=== PATIENT | female | born 1990 | race Caucasian/White ===

== ENCOUNTER 2018-03-08 23:32 | Emergency (ER) | payer SELFPAY ==
[2018-03-08 23:42] VITALS: BP 111/72
[2018-03-09] MEDS ORDERED: KEFLEX PO ONE (00:40)
[2018-03-09] MEDS ORDERED: TYLENOL PO ONE (00:41)
--- NOTE | 2018-03-09 00:46 | Emergency Department Report ---
ED ENT HPI - General Chief complaint: Sore Throat Stated complaint: FEVER,SORE THROAT,SINUS INFECTION Time Seen by Provider: 03/09/18 00:01 Source: patient Mode of arrival: Ambulatory Limitations: No Limitations - Related Data Previous Rx's Medication Instructions Recorded Last Taken Type Cephalexin [Keflex] 500 mg PO Q12HR #14 cap 03/09/18 Unknown Rx Fluticasone [Flonase] 1 spray NS QDAY PRN #1 bottle 03/09/18 Unknown Rx Ibuprofen [Motrin] 600 mg PO Q8H PRN #15 tablet 03/09/18 Unknown Rx Allergies Allergy/AdvReac Type Severity Reaction Status Date / Time albuterol Allergy Hives Verified 03/08/18 23:42 azithromycin Allergy Hives Verified 03/08/18 23:42 [From Zithromax Z-Chalo] ED Dental HPI - General Chief complaint: Sore Throat Stated complaint: FEVER,SORE THROAT,SINUS INFECTION Time Seen by Provider: 03/09/18 00:01 Source: patient Mode of arrival: Ambulatory Limitations: No Limitations - Related Data Previous Rx's Medication Instructions Recorded Last Taken Type Cephalexin [Keflex] 500 mg PO Q12HR #14 cap 03/09/18 Unknown Rx Fluticasone [Flonase] 1 spray NS QDAY PRN #1 bottle 03/09/18 Unknown Rx Ibuprofen [Motrin] 600 mg PO Q8H PRN #15 tablet 03/09/18 Unknown Rx Allergies Allergy/AdvReac Type Severity Reaction Status Date / Time albuterol Allergy Hives Verified 03/08/18 23:42 azithromycin Allergy Hives Verified 03/08/18 23:42 [From Zithromax Z-Chalo] ED Review of Systems ROS: Stated complaint: FEVER,SORE THROAT,SINUS INFECTION Other details as noted in HPI Constitutional: denies: chills, fever Eyes: denies: eye pain, eye discharge, vision change ENT: denies: ear pain, throat pain Respiratory: denies: cough, shortness of breath, wheezing Cardiovascular: denies: chest pain, palpitations Endocrine: no symptoms reported Gastrointestinal: denies: abdominal pain, nausea, diarrhea Genitourinary: denies: urgency, dysuria, discharge Musculoskeletal: denies: back pain, joint swelling, arthralgia Skin: denies: rash, lesions Neurological: denies: headache, weakness, paresthesias Psychiatric: denies: anxiety, depression Hematological/Lymphatic: denies: easy bleeding, easy bruising ED Past Medical Hx - Past Medical History Previous Medical History?: Yes Hx Diabetes: Yes (type 1) Additional medical history: Lupus. 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 - Surgical History Past Surgical History?: Yes Additional Surgical History: tonsils - Social History Smoking Status: Never Smoker Substance Use Type: None - Medications Home Medications: Home Medications Medication Instructions Recorded Confirmed Last Taken Type Cephalexin [Keflex] 500 mg PO Q12HR #14 cap 03/09/18 Unknown Rx Fluticasone [Flonase] 1 spray NS QDAY PRN #1 bottle 03/09/18 Unknown Rx Ibuprofen [Motrin] 600 mg PO Q8H PRN #15 tablet 03/09/18 Unknown Rx ED Physical Exam - General Limitations: No Limitations General appearance: alert, in no apparent distress - Head Head exam: Present: atraumatic, normocephalic - Eye Eye exam: Present: normal appearance - ENT ENT exam: Present: mucous membranes moist - Neck Neck exam: Present: normal inspection - Respiratory Respiratory exam: Present: normal lung sounds bilaterally. Absent: respiratory distress - Cardiovascular Cardiovascular Exam: Present: regular rate, normal rhythm. Absent: systolic murmur, diastolic murmur, rubs, gallop - GI/Abdominal GI/Abdominal exam: Present: soft, normal bowel sounds - Extremities Exam Extremities exam: Present: normal inspection - Back Exam Back exam: Present: normal inspection - Neurological Exam Neurological exam: Present: alert, oriented X3 - Psychiatric Psychiatric exam: Present: normal affect, normal mood - Skin Skin exam: Present: warm, dry, intact, normal color. Absent: rash ED Course Vital Signs 03/08/18 23:38 Temperature 99.0 F Pulse Rate 109 H Respiratory 16 Rate Blood Pressure 111/72 O2 Sat by Pulse 98 Oximetry Critical care attestation.: If time is entered above; I have spent that time in minutes in the direct care of this critically ill patient, excluding procedure time. ED Disposition Clinical Impression: Sinusitis Qualifiers: Sinusitis location: frontal Chronicity: acute Recurrence: recurrent Qualified Code(s): J01.11 - Acute recurrent frontal sinusitis Disposition: TO HOME OR SELFCARE Is pt being admited?: No Does the pt Need Aspirin: No Condition: Stable Instructions: Cephalexin (By mouth), Sinusitis (ED) Prescriptions: Cephalexin [Keflex] 500 mg PO Q12HR #14 cap Fluticasone [Flonase] 1 spray NS QDAY PRN #1 bottle PRN Reason: Congestion Ibuprofen [Motrin] 600 mg PO Q8H PRN #15 tablet PRN Reason: Pain Referrals: [facility] [Provider Group] - 3-5 Days [facility] [Outside] - 3-5 Days Time of Disposition: 00:43
== END 2018-03-09 00:50 | disposition home or self-care (01) ==
LOC: ED 23:32
DX: J01.11 Acute recurrent frontal sinusitis (principal); E10.9 Type 1 diabetes mellitus without complications; M32.9 Systemic lupus erythematosus, unspecified; Z88.1 Allergy status to other antibiotic agents; Z88.8 Allergy status to other drugs, medicaments and biological substances
CPT/HCPCS: 99282